=== PATIENT | male | born 1980 | race Caucasian/White ===

== ENCOUNTER 2018-04-09 13:49 | Emergency (ER) | payer MEDICARE ==
[~2018-04-09] VITALS: Ht 172.7 cm; Wt 75.9 kg
[2018-04-09 13:54] VITALS: Ht 172.7 cm; Wt 75.9 kg
[2018-04-09] MEDS ORDERED: SEROQUEL300 MG PO (13:56)
[2018-04-09] MEDS ORDERED: CHLORPROMAZINE200 MG PO (13:56)
[2018-04-09 14:35] LABS: BASOPHILS 0.7 % (0-2); EOSINOPHILS 5.8 % (0-7); HEMATOCRIT 44.9 % (42.0-54.0); HEMOGLOBIN 15.1 g/dL (13.5-17.5); IMMATURE GRANULOCYTES 0.4 % (0-5); LYMPHOCYTES 27.7 % (15-50); MCH 30.3 pg (26.0-34.0); MCHC 33.6 g/dL (31.0-37.0); MEAN PLATELET VOLUME 9.5 fL (7.4-10.4); MONOCYTES 13.2 % (2-11); NEUTROPHILS 52.2 % (40-80); PLATELET COUNT 217 10x3/uL (130-400); RBC 4.99 10x6/uL (4.20-6.10); RDW 13.8 % (11.5-14.5); WBC 7.3 10x3/uL (4.8-10.8)
[2018-04-09 14:37] LABS: UDS - AMPHET NEGATIVE QUAL (NEGATIVE); UDS - BARB NEGATIVE QUAL (NEGATIVE); UDS - BENZO NEGATIVE QUAL (NEGATIVE); UDS - COCAINE NEGATIVE QUAL (NEGATIVE); UDS - OPIATE NEGATIVE QUAL (NEGATIVE); UDS - PCP NEGATIVE QUAL (NEGATIVE); UDS - THC POSITIVE QUAL (NEGATIVE)
[2018-04-09 14:51] LABS: ACETAMINOPHEN 1.1 ug/mL (10.0-30.0); ALBUMIN 3.2 g/dL (3.4-5.0); ALKALINE PHOSPHATASE 69 U/L (46-116); ALT (SGPT) 357 U/L (10-68); BILIRUBIN - TOTAL 0.29 mg/dL (0.2-1.3); CALC OSMOLALITY 277 mosm/kg (275-300); CALCIUM 8.1 mg/dL (8.5-10.1); CARBON DIOXIDE 30.1 mmol/L (21.0-32.0); CHLORIDE - SERUM 102 mmol/L (98-107); CREATININE - SERUM 0.7 mg/dL (0.6-1.3); GLUCOSE 111 mg/dL (74-106); POTASSIUM - SERUM 3.5 mmol/L (3.5-5.1); PROTEIN - SERUM 6.8 g/dL (6.4-8.2); SODIUM 139 mmol/L (136-145); UREA NITROGEN 9 mg/dL (7-18); eGFR NON AFRICAN AMERICAN > 90 mL/min (90-120)
[2018-04-09 15:06] LABS: APPEARANCE CLEAR (CLEAR); COLOR YELLOW (YELLOW); GLUCOSE NEGATIVE (NEGATIVE); KETONE NEGATIVE (NEGATIVE); NITRITE NEGATIVE (NEGATIVE); PROTEIN NEGATIVE (NEGATIVE)
[2018-04-09 15:07] LABS: BILIRUBIN NEGATIVE (NEGATIVE)
[2018-04-09 21:15] VITALS: BP 132/78
== END 2018-04-09 21:15 ==
LOC: D.ER 13:49
PROVIDERS: Emergency Medicine
DX: F32.9 Major depressive disorder, single episode, unspecified (principal); R45.851 Suicidal ideations

== ENCOUNTER 2018-09-20 19:07 | Emergency (ER) | payer MEDICARE ==
[~2018-09-20 19:07] MED LIST: CHLORPROMAZINE200 MG PO; SEROQUEL300 MG PO
[2018-09-20 19:11] VITALS: Ht 172.7 cm
[2018-09-20] MEDS ORDERED: LITHOBID 300 M300 MG PO (19:12)
[2018-09-20] MEDS ORDERED: VRAYLAR3 MG PO (19:12)
[2018-09-20 19:44] LABS: BASOPHILS 0.5 % (0-2); EOSINOPHILS 4.5 % (0-7); HEMATOCRIT 45.2 % (42.0-54.0); IMMATURE GRANULOCYTES 1.1 % (0-5); LYMPHOCYTES 30.4 % (15-50); MCH 31.3 pg (26.0-34.0); MCHC 35.4 g/dL (31.0-37.0); MCV 88.5 fL (80.0-100.0); MEAN PLATELET VOLUME 9.9 fL (7.4-10.4); NEUTROPHILS 54.5 % (40-80); PLATELET COUNT 202 10x3/uL (130-400); RBC 5.11 10x6/uL (4.20-6.10); WBC 14.7 10x3/uL (4.8-10.8)
[2018-09-20 20:01] LABS: ALBUMIN 3.8 g/dL (3.4-5.0); ALKALINE PHOSPHATASE 70 U/L (46-116); ALT (SGPT) 527 U/L (10-68); AMYLASE - SERUM 52 U/L (25-115); BILIRUBIN - TOTAL 0.64 mg/dL (0.2-1.3); CALC OSMOLALITY 276 mosm/kg (275-300); CALCIUM 8.4 mg/dL (8.5-10.1); CARBON DIOXIDE 24.8 mmol/L (21.0-32.0); CHLORIDE - SERUM 104 mmol/L (98-107); CREATININE - SERUM 0.9 mg/dL (0.6-1.3); GLUCOSE 97 mg/dL (74-106); LIPASE 159 U/L (73-393); PROTEIN - SERUM 7.7 g/dL (6.4-8.2); SODIUM 139 mmol/L (136-145); UREA NITROGEN 11 mg/dL (7-18); eGFR NON AFRICAN AMERICAN > 90 mL/min (90-120)
[2018-09-20 20:03] LABS: TROPONIN-I < 0.017 ng/mL (0.000-0.060)
[2018-09-20 20:04] LABS: POTASSIUM - SERUM 2.8 mmol/L (3.5-5.1)
[2018-09-20] MEDS ORDERED: ZOFRAN4 MG PO (22:11)
[2018-09-20] MEDS ORDERED: OMEPRAZOLE20 M1 PO (22:11)
[2018-09-20 22:19] LABS: APPEARANCE CLEAR (CLEAR); BILIRUBIN NEGATIVE (NEGATIVE); COLOR YELLOW (YELLOW); GLUCOSE NEGATIVE (NEGATIVE); KETONE NEGATIVE (NEGATIVE); NITRITE NEGATIVE (NEGATIVE); PROTEIN NEGATIVE (NEGATIVE); UROBILINOGEN NORMAL (NORMAL)
[2018-09-20 23:00] VITALS: BP 146/90
== END 2018-09-20 23:01 | disposition home or self-care (01) ==
LOC: D.ER 19:07
PROVIDERS: Family Medicine
DX: R10.9 Unspecified abdominal pain (principal); R11.2 Nausea with vomiting, unspecified; B19.20 Unspecified viral hepatitis C without hepatic coma

== ENCOUNTER → 2018-10-06 07:09 | Outpatient (CLI) | payer MEDICARE ==
[2018-09-20 19:11] VITALS: BMI 25.4
[~2018-10-06 07:09] MED LIST changes: +LITHOBID 300 M300 MG PO; +OMEPRAZOLE20 M1 PO; +VRAYLAR3 MG PO; +ZOFRAN4 MG PO
== END | disposition home or self-care (01) ==
LOC: D.US 07:09
PROVIDERS: ATTEND Family Medicine
DX: R11.2 Nausea with vomiting, unspecified (principal)